=== PATIENT | male | born 1960 | race Caucasian/White ===

== ENCOUNTER 2018-05-29 07:07 | Emergency (ER) | payer OTHER ==
[~2018-05-29] VITALS: Ht 167.6 cm; Wt 85.0 kg
[2018-05-29] MEDS ORDERED: ONDANSETRON 2MG/ML, 2ML ONE (07:51)
[2018-05-29] MEDS ORDERED: HYDROmorphone 2 MG/ML, 1ML ONE (07:52)
[2018-05-29] MEDS ORDERED: ONDANSETRON 2MG/ML, 2ML IVPush ONE (08:00)
[2018-05-29] MEDS ORDERED: HYDROmorphone 2 MG/ML, 1ML IVPush PRN (08:00)
[2018-05-29 09:24] VITALS: BP 103/56
== END 2018-05-29 09:49 | disposition home or self-care (01) ==
LOC: ED 09:19
DX: K40.91 Unilateral inguinal hernia, without obstruction or gangrene, recurrent (principal); E11.9 Type 2 diabetes mellitus without complications; R11.0 Nausea; M54.9 Dorsalgia, unspecified
CPT/HCPCS: 74176; 96374; 96375; 99284; J1170; J2405